=== PATIENT | female | born 1965 | race American Indian/Alaskan Native ===

== ENCOUNTER 2017-12-03 11:07 | Emergency (ER) | payer SELFPAY ==
--- NOTE | 2017-12-03 11:41 | Emergency Department Report ---
Blank Doc - Documentation Documentation: Patient is 52 years old female with no significant past medical history. Patient presented to the ER complaining off dizziness, lightheadedness and generalized weakness. Patient stated that she did not feeling herself and she was disoriented today. Patient just finished a job interview. Patient denied any focal weakness, numbness or tingling sensation. On exam patient is alert and oriented 3 with no motor or sensory deficit.
[2017-12-03 12:02] LABS: Bilirubin,Urine NEG (Negative); Blood,Urine NEG (Negative); Color,Urine Yellow (Yellow); Mucus,Urine FEW /HPF; Urobilinogen,Urine < 2.0 mg/dL (<2.0)
[2017-12-03 12:04] LABS: Basophils % (Auto) 0.2 % (0.0-1.8); Eosinophils # (Auto) 0.2 K/mm3 (0.0-0.4); Eosinophils % (Auto) 1.1 % (0.0-4.3); Hematocrit 42.7 % (30.3-42.9); Hemoglobin 14.3 gm/dl (10.1-14.3); Lymphocytes # (Auto) 2.4 K/mm3 (1.2-5.4); Lymphocytes % (Auto) 17.5 % (13.4-35.0); Mean Corpuscular HGB Conc 34 % (30-34); Mean Corpuscular Hemoglobin 32 pg (28-32); Mean Corpuscular Volume 96 fl (79-97); Monocytes # (Auto) 0.4 K/mm3 (0.0-0.8); Monocytes % (Auto) 3.1 % (0.0-7.3); Platelet Count 261 K/mm3 (140-440); Red Blood Count 4.47 M/mm3 (3.65-5.03); Red Cell Distribution Width 12.9 % (13.2-15.2)
[2017-12-03 12:13] VITALS: BP 149/96
[2017-12-03 12:17] LABS: BUN/Creatinine Ratio 18; Blood Urea Nitrogen 9 mg/dL (7-17); Calcium 9.2 mg/dL (8.4-10.2); Hemolysis Index 8
--- NOTE | 2017-12-03 12:49 | Cat Scan Report ---
FINAL REPORT EXAM: CT HEAD/BRAIN WO CON HISTORY: Lightheadedness/Dizziness TECHNIQUE: CT of the head was performed without intravenous contrast. PRIORS: None. FINDINGS: The ventricles are normal in shape and position. The ventricles are nondilated. No intracranial hemorrhage, mass, mass effect, midline shift or evidence of acute ischemic infarct. The basilar cisterns are patent. The paranasal sinuses are clear. The extracranial soft tissues demonstrate no abnormality. The calvarium is intact. The orbits are intact. The mastoid air cells are clear. IMPRESSION: No acute intracranial abnormality.
[2017-12-03] MEDS ORDERED: K-DUR PO ONE (13:28)
--- NOTE | 2017-12-03 13:57 | Emergency Department Report ---
ED Dizziness HPI - General Chief Complaint: Dizziness Stated Complaint: DIZZINESS Time Seen by Provider: 12/03/17 11:26 Source: patient Mode of arrival: Ambulatory Limitations: No Limitations - History of Present Illness Initial Comments: This is a 52-year-old female nontoxic, well nourished in appearance, no acute signs of distress presents to the ED with c/o of dizziness and lightheadedness that started this morning. Patient stated that she was in a job interview this morning and while waiting for the interviewer she became dizzy and felt like she was "disoriented". Patient denies any head trauma or headache. Patient denies any focal weakness, chest pain, shortness of breathe, fever, chills, numbness, tingling, back pain, stiff neck, back pain, abdominal pain. Patient denies any motor or sensory deficit. Patient denies any allergies or PMH. MD Complaint: dizziness, lightheadedness -: This morning Timing: sudden onset Description: lightheadedness History of Same: No History of Trauma: No Severity: mild Improves With: nothing Worsens With: nothing Associated Symptoms: denies other symptoms. denies: ataxia, chest pain, confusion, cough, diaphoresis, fever/chills, loss of appetite, malaise, rash, seizure, shortness of breath, syncope, weakness - Related Data Allergies Allergy/AdvReac Type Severity Reaction Status Date / Time No Known Allergies Allergy Unverified 12/03/17 11:15 ED Review of Systems ROS: Stated complaint: DIZZINESS Other details as noted in HPI Constitutional: denies: chills, fever Eyes: denies: eye pain, eye discharge, vision change ENT: denies: ear pain, throat pain Respiratory: denies: cough, shortness of breath, wheezing Cardiovascular: denies: chest pain, palpitations Endocrine: no symptoms reported Gastrointestinal: denies: abdominal pain, nausea, diarrhea Genitourinary: denies: urgency, dysuria, discharge Musculoskeletal: denies: back pain, joint swelling, arthralgia Skin: denies: rash, lesions Neurological: other (dizziness). denies: headache, weakness, paresthesias Psychiatric: denies: anxiety, depression Hematological/Lymphatic: denies: easy bleeding, easy bruising ED Past Medical Hx - Past Medical History Previous Medical History?: No - Surgical History Past Surgical History?: No - Social History Smoking Status: Current Every Day Smoker Substance Use Type: Alcohol ED Physical Exam - General Limitations: No Limitations General appearance: alert, in no apparent distress - Head Head exam: Present: atraumatic, normocephalic - Eye Eye exam: Present: normal appearance Pupils: Present: normal accommodation - ENT ENT exam: Present: normal exam, mucous membranes moist - Neck Neck exam: Present: normal inspection, full ROM. Absent: tenderness, meningismus, lymphadenopathy - Respiratory Respiratory exam: Present: normal lung sounds bilaterally. Absent: respiratory distress, wheezes, rales, rhonchi, stridor, chest wall tenderness, accessory muscle use, decreased breath sounds, prolonged expiratory - Cardiovascular Cardiovascular Exam: Present: regular rate, normal rhythm, normal heart sounds. Absent: bradycardia, tachycardia, irregular rhythm, systolic murmur, diastolic murmur, rubs, gallop - GI/Abdominal GI/Abdominal exam: Present: soft, normal bowel sounds. Absent: distended, tenderness, guarding, rebound, rigid, diminished bowel sounds - Rectal Rectal exam: Present: deferred - Extremities Exam Extremities exam: Present: normal inspection, full ROM, normal capillary refill. Absent: tenderness, calf tenderness - Back Exam Back exam: Present: normal inspection, full ROM. Absent: tenderness, CVA tenderness (R), CVA tenderness (L), muscle spasm, paraspinal tenderness, vertebral tenderness, rash noted - Neurological Exam Neurological exam: Present: alert, oriented X3, CN II-XII intact, normal gait - Expanded Neurological Exam Expanded Patient oriented to: Present: person, place, time Cranial nerves: EOM's Intact: Normal, Gag Reflex: Normal, Facial Sensation: Normal Cerebellar function: Finger to Nose: Normal Upper motor neuron: Pronator Drift: Normal, Sensory Extinction: Normal Sensory exam: Upper Extremity Light Touch: Normal, Upper Extremity Pin Prick: Normal, Upper Extremity Temperature: Normal, UE 2 Point Discrimination: Normal, Lower Extremity Light Touch: Normal, Lower Extremity Pin Prick: Normal, Lower Extremity Temperature: Normal, LE 2 Point Discrimination: Normal Motor strength exam: RUE: 5, LUE: 5, RLE: 5, LLE: 5 Best Eye Response (Luis Fernando): (4) open spontaneously Best Motor Response (Luis Fernando): (6) obeys commands Best Verbal Response (Luis Fernando): (5) oriented Luis Fernando Total: 15 - Psychiatric Psychiatric exam: Present: normal affect, normal mood - Skin Skin exam: Present: warm, dry, intact, normal color. Absent: rash ED Course Vital Signs 12/03/17 12/03/17 12/03/17 11:11 12:04 12:05 Temperature 97.7 F Pulse Rate 73 64 70 Respiratory 20 Rate Blood Pressure 182/97 137/88 145/93 O2 Sat by Pulse 95 98 96 Oximetry 12/03/17 12:06 Temperature Pulse Rate 68 Respiratory Rate Blood Pressure 149/96 O2 Sat by Pulse 95 Oximetry - Reevaluation(s) Reevaluation #1: 12/03/17 13:57 Patient is speaking in full sentences with no signs of distress noted. - Consultations Consultation #1: 12/03/17 13:57 Patient has been consulted with Dr. Rizo about patient history, physical exam , and labs/CT scan and examined and screened patient and agrees to ED plan of care and discharge plan of care. ED Medical Decision Making - Lab Data Result diagrams: 12/03/17 11:40 12/03/17 11:40 - Medical Decision Making This is a 52-year-old female that presents with dizziness and lightheadedness. Patient is stable was examined by me and Dr. Rizo. Labs obtained. UA obtained. EKG normal sinus rhythm with LVH. Trop and d-dimmer negative. CT negative of head and dictated by the radiologist. Patient is notified of the CT report with no questions noted by the patient. Orthostatic vitals signs done and normal. Patient stated she has been drink water in the ED and stated that symptoms has resolved and subsided. Patient was instructed to Follow-up with a primary care doctor in 3-5 days or if symptoms worsen and continue return to emergency room as soon as possible. At time of discharge, the patient does not seem toxic or ill in appearance. No acute signs of distress noted. Patient agrees to discharge treatment plan of care. No further questions noted by the patient. Critical care attestation.: If time is entered above; I have spent that time in minutes in the direct care of this critically ill patient, excluding procedure time. ED Disposition Clinical Impression: Dizziness, Lightheadedness Disposition: DC-01 TO HOME OR SELFCARE Is pt being admited?: No Does the pt Need Aspirin: No Condition: Stable Additional Instructions: Follow-up with a primary care doctor in 3-5 days or if symptoms worsen and continue return to emergency room as soon as possible. Referrals: PRIMARY CARE, [Primary Care Provider] - 3-5 Days DEJON PINZON MD [Staff Physician] - 3-[address] [facility] [Outside] - 3-5 Days [facility] [Outside] - 3-5 Days Forms: Work/School Release Form(ED)
== END 2017-12-03 14:07 | disposition home or self-care (01) ==
LOC: ED 11:07
DX: R42 Dizziness and giddiness (principal); F17.200 Nicotine dependence, unspecified, uncomplicated
CPT/HCPCS: 36415; 70450; 80048; 81001; 82962; 84484; 85025; 85379; 93005; 93010